=== PATIENT | male | born 1955 | race Caucasian/White ===

== ENCOUNTER → 2017-12-18 | Day surgery (SDC) | payer OTHER ==
--- NOTE | 2017-12-16 16:15 | MH ---
cc: Carla Clements MD DATE OF ADMISSION: 12/18/2017 DATE OF ADMISSION FOR SURGERY: 12/18/2017 ADMITTING DIAGNOSIS: Torn medial meniscus, now being admitted for arthroscopy of the left knee. HISTORY OF PRESENT ILLNESS: This pleasant 62-year-old male is being admitted today for arthroscopy of the left knee due to torn medial meniscus. PAST MEDICAL HISTORY: The patient has a history of back pain. PAST SURGICAL HISTORY: Tonsillectomy. MEDICATIONS: An 81 mg aspirin a day. REVIEW OF SYSTEMS: Noncontributory. FAMILY HISTORY: Noncontributory. SOCIAL HISTORY: He does not smoke or drink. ALLERGIES: SULFA AND PENICILLIN. PHYSICAL EXAMINATION: GENERAL: A 62-year-old male, well developed, well nourished and oriented x 3, complaining of pain in his left knee. VITAL SIGNS: Blood pressure 130/90, pulse 64 and regular, respirations 16, temperature 98.3, pulse oximetry 97% on room air. HEENT: Eyes: PERRL. EOMI. Ears, nose, throat: Clear. NECK: Supple. LUNGS: Clear. HEART: Regular rate. ABDOMEN: Soft, positive bowel sounds, nontender. EXTREMITIES: Reveal his left knee to be tender over the medial and lateral joint margins, but is neurovascularly intact to his toes. IMPRESSION: Torn medial meniscus along with anterior cruciate tear, left knee. PLAN: Admission for arthroscopy of the left knee today. The patient was given prescription postop pain control in the office. Carla Clements MD JRGi/KD , 03:04 PM , 03:21 PM
[~2017-12-18] VITALS: Ht 181.6 cm; Wt 90.0 kg
[~2017-12-18] MED LIST: ASPI-516 CHEW; BUPIVACAINE/EPINEPHRINE 0.5% PF 10 ML VIAL ONE; CHLORHEXIDINE GLUCONATE 2 % 1 PACK (2 CLOTHS) TOPICAL PRN; CHLORHEXIDINE GLUCONATE 4% SOLN 120 ML BTL TOPICAL SCH; DEXAMETHASONE SOD PHOS 4 MG/ML VIAL ONE; INSULIN HUMAN REGULAR 1,000 UNITS/10 ML VIAL SQ PRN; LACTATED RINGER'S 1000 ML IV PRN; METOPROLOL TARTRATE 25 MG TAB PO PRN; POVIDONE IODINE 5% (ANTISEPSIS KIT) 4 APPLICATIONS EACH NARE PRN; SODIUM CHLOR 0.9% 250 ML INJ 250 ML ONE; SODIUM CHLORID 0.9% 500 ML IV PRN; VANCOMYCIN 1000 MG/NS 250 ML (for <70 kg) IV SCH; VANCOMYCIN HCL 1000 MG VIAL ONE
[2017-12-18 15:00] VITALS: PULSE 61
--- NOTE | 2017-12-18 15:06 | HHI.PR ---
Immediate Post Op Note Procedure Date: Dec 18, 2017 Pre Op Diagnosis: Left knee Medial meniscus tear and anterior cruciate tear Post Op Diagnosis: Left knee Medial meniscus tear and anterior cruciate tear Surgeon: Francisco Clements MD Furniture Removalist(s): Meredith PEREZ Procedure: Left Knee Arthroscopy with shaving medial meniscus and anterior cruciate tear Specimen(s) removed: none Estimated blood loss: 5 cc Anesthesia: LMA Drains: None IVF Urinary Output (mLs): 0 (no clemente) Tourniquet time (min at mmHg) none Patient to: SDS Patient Condition: Good Date/Time of Procedure: SEE SURGICAL CARE RECORD Meredith Landry Dec 18, 2017 15:06
[2017-12-18 16:45] VITALS: BP 147/96; PULSE 61; RESP 15; TEMP 97.5; O2SAT 96
--- NOTE | 2017-12-21 08:23 | MP ---
cc: Carla Clements MD DATE OF OPERATION: 12/18/2017 PREOPERATIVE DIAGNOSIS: Torn medial meniscus, left knee. POSTOPERATIVE DIAGNOSES: 1. Torn medial meniscus, left knee. 2. Osteochondral defect 1 cm in diameter weightbearing surface of the lateral femoral condyle. 3. Anterior cruciate tear, chronic. SURGERY PERFORMED: Arthroscopy, excision of torn medial meniscus, ArthroCare shaving lateral femoral condyle defect and intercondylar notch, left knee. SURGEON: Carla Clements MD ANESTHESIOLOGY PHYSICIAN ASSISTANT: CHRIS Suarez. ANESTHESIA: LMA. DESCRIPTION OF PROCEDURE: The patient was brought to the operating room and placed on the operating room table in the supine position. After successful induction of general anesthesia, the patient's ?? leg was prepped and draped in the usual manner. The knee was then placed in a knee valdez and tightened. Arthroscopic examination was then performed by making a stab wound over the proximal superior and medial aspect of the patellofemoral joint for insertion of the inflow cannula and fluid, followed by stab wounds over the medial and lateral joint margins respectively for insertion of the arthroscope, shaver and probe. Arthroscopic examination was then performed which revealed Intact the patellofemoral joint. The anterior cruciate was found to be completely torn chronically. The rest of the intercondylar notch debrided using the ArthroCare and shaver. The medial meniscus was found to have a large tear in the posterolateral portion, removed using the ArthroCare cutter shaver probe to afford a smooth surface. The rest of the medial compartment found to be intact. Lateral compartment found to have a 1 cm osteochondral defect on the weightbearing surface of the lateral femoral condyle, shaved smooth using ArthroCare system. The rest of the lateral compartment including meniscus was found to be intact. The wound irrigated copiously with lactated Ringer's solution. Excess fluid removed. 8 mL of 0.25% Marcaine plain and 2 mL of Decadron inserted in the knee joint. Skin approximated with interrupted 3-0 nylon suture. Wet and then dry dressing applied to the wound followed by Xeroform gauze, sterile dressing and thigh-high Keith wrap. No tourniquet utilized. Estimated blood loss 5 mL. Sponge and suture counts correct. The patient tolerated the procedure well and left the operating room in satisfactory condition. CHRIS Suarez was present during the entire procedure to include patient positioning and the procedure. The medical necessity of the nurse practitioner, first officer and flight instructor was indicated in this case due to the surgical complexity of the case itself. During the surgical case, the surgical garment assembly supervisor was working the back table while my neurosurgical nurse CHRIS was directly assisting me. J. MD HERMINIO Tesfaye/DONALDO , 02:47 PM , 03:07 PM
== END | disposition home or self-care (01) ==
LOC: PHSDC 13:09 → EDUNIT# 15:30
PROVIDERS: ATTEND Surgery
DX: S83.242A Other tear of medial meniscus, current injury, left knee, initial encounter (principal); S83.512A Sprain of anterior cruciate ligament of left knee, initial encounter; M54.9 Dorsalgia, unspecified; Z79.82 Long term (current) use of aspirin
CPT/HCPCS: 01400; 29881; J1100; J3010; J3370; J7050; J7120